=== PATIENT | male | born 1970 | race Caucasian/White ===

== ENCOUNTER 2023-02-20 13:37 | Emergency (ER) | payer MEDICAID, OTHER | END 2023-02-20 15:03 | disposition home or self-care (01) | LOC: JP.ED 13:37 | DX: S62.175A Nondisplaced fracture of trapezium [larger multangular], left wrist, initial encounter for closed fracture (principal); S16.1XXA Strain of muscle, fascia and tendon at neck level, initial encounter; S00.83XA Contusion of other part of head, initial encounter; W22.09XA Striking against other stationary object, initial encounter | CPT/HCPCS: 73130-26-LT; 73130-LT; 99284 ==

== ENCOUNTER 2023-06-07 08:08 | Day surgery (SDC) | payer OTHER ==
[~2023-06-07 08:08] MED LIST: Bupivacaine 0.5% 30 ML SDV ONE
[2023-06-07] MEDS ORDERED: Lactated Ringers 1,000 ML IV SCH (08:30)
[2023-06-07 08:33] LABS: HEMATOCRIT 46.2 % (38.4-49.7); HEMOGLOBIN 16.5 g/dL (12.9-16.9); MEAN CORPUSCULAR HEMOGLOBIN 33.9 pg (31.6-35.5); MEAN CORPUSCULAR HGB CONC 35.7 g/dL (31.6-35.5); MEAN CORPUSCULAR VOLUME 94.9 fL (81.4-99.0); RED BLOOD CELL COUNT 4.87 M/uL (4.14-5.76); WHITE BLOOD CELL COUNT,WBC 7.2 K/uL (3.2-11.0)
[2023-06-07 08:53] LABS: A/G RATIO 1.1 (1.2-2.2); ALANINE AMINOTRANSFERASE,ALT 39 U/L (12-78); ALBUMIN 3.9 g/dL (3.4-5.0); ALKALINE PHOSPHATASE 80 U/L (46-116); ANION GAP 10.3 mmol/L (5.0-14.0); ASPARTATE AMNIOTRANSFERASE,AST 24 U/L (15-37); BILIRUBIN TOTAL 0.8 mg/dL (0.2-1.0); BLOOD UREA NITROGEN,BUN 17 mg/dL (7-18); CALCIUM 8.6 mg/dL (8.5-10.1); CARBON DIOXIDE,CO2 28 mmol/L (21-32); CHLORIDE,CL 102 mmol/L (100-108); CREATININE 1.2 mg/dL (0.8-1.3); EST CRCL DRUG DOSING (CG) 74.35 mL/min; ESTIMATED GFR 73 mL/min (>60); GLUCOSE RANDOM 98 mg/dL (74-106); POTASSIUM,K 4.3 mmol/L (3.6-5.2); PROTEIN TOTAL,TP 7.5 g/dL (6.4-8.2); SODIUM,NA 140 mmol/L (140-148)
[2023-06-07] MEDS ORDERED: Midazolam 1 MG/ML 2 ML SDV ONE (08:56)
[2023-06-07] MEDS ORDERED: Propofol 200 MG/20 ML SDV ONE ×3 (08:56→10:27)
[2023-06-07] MEDS ORDERED: fentaNYL 100 MCG/2 ML SDV ONE (08:56)
[2023-06-07] MEDS ORDERED: ceFAZolin 2 GM in Premix Bag 1 BAG IV ONE (09:00)
[2023-06-07] MEDS ORDERED: Lidocaine 0.5% 50 ML SDV ONE (09:20)
[2023-06-07] MEDS ORDERED: Morphine 2 MG/ML SYRINGE IVPUSH ONE (11:00)
[2023-06-07] MEDS ORDERED: Acetaminophen/HYDROcodone 325-5 MG Tab PO PRN (11:42)
== END 2023-06-07 13:00 | disposition home or self-care (01) ==
LOC: JP.SDS 08:08
PROVIDERS: ATTEND Specialist
DX: M18.12 Unilateral primary osteoarthritis of first carpometacarpal joint, left hand (principal); I10 Essential (primary) hypertension; F43.10 Post-traumatic stress disorder, unspecified; F32.A Depression, unspecified
CPT/HCPCS: 25447; 36415; 80053; 85027; A9270; C1768; J0690; J2250; J2270; J2704; J3010; J3490; J7120

== ENCOUNTER 2023-08-16 08:00 | Day surgery (SDC) | payer OTHER ==
[2023-08-16] MEDS ORDERED: ceFAZolin 2 GM in Sodium Chloride 0.9% 50 ML IV ONE (08:30)
[2023-08-16] MEDS ORDERED: Lactated Ringers 1,000 ML IV SCH (08:30)
[2023-08-16] MEDS ORDERED: Nozin Nasal Sanitizer NASBOTH ONE (08:30)
[2023-08-16] MEDS ORDERED: ceFAZolin 2 GM in Premix Bag 1 BAG IV ONE ×4 (08:30)
[2023-08-16] MEDS ORDERED: fentaNYL 100 MCG/2 ML SDV ONE ×2 (08:32→10:13)
[2023-08-16] MEDS ORDERED: Propofol 200 MG/20 ML SDV ONE ×5 (08:32→11:27)
[2023-08-16] MEDS ORDERED: Lidocaine 0.5% 50 ML SDV ONE (08:32)
[2023-08-16] MEDS ORDERED: Midazolam 1 MG/ML 2 ML SDV ONE ×2 (08:32→10:12)
[2023-08-16 08:36] LABS: HEMATOCRIT 41.8 % (38.4-49.7); MEAN CORPUSCULAR HEMOGLOBIN 33.1 pg (31.6-35.5); MEAN CORPUSCULAR HGB CONC 35.9 g/dL (31.6-35.5); MEAN CORPUSCULAR VOLUME 92.3 fL (81.4-99.0); RED BLOOD CELL COUNT 4.53 M/uL (4.14-5.76); WHITE BLOOD CELL COUNT,WBC 4.6 K/uL (3.2-11.0)
[2023-08-16 08:52] LABS: BLOOD UREA NITROGEN,BUN 18 mg/dL (7-18); CALCIUM 8.3 mg/dL (8.5-10.1); CARBON DIOXIDE,CO2 25 mmol/L (21-32); CHLORIDE,CL 105 mmol/L (100-108); CREATININE 1.2 mg/dL (0.8-1.3); ESTIMATED GFR 73 mL/min (>60); GLUCOSE RANDOM 100 mg/dL (74-106); POTASSIUM,K 4.1 mmol/L (3.6-5.2); SODIUM,NA 139 mmol/L (140-148)
[2023-08-16 08:53] LABS: ANION GAP 13.1 mmol/L (5.0-14.0)
[2023-08-16] MEDS ORDERED: Morphine 2 MG/ML SYRINGE IVPUSH ONE (12:30)
[2023-08-16] MEDS ORDERED: Acetaminophen/HYDROcodone 325-5 MG Tab PO PRN (12:57)
== END 2023-08-16 13:55 | disposition home or self-care (01) ==
LOC: JP.SDS 08:00
PROVIDERS: ATTEND Specialist
DX: M18.12 Unilateral primary osteoarthritis of first carpometacarpal joint, left hand (principal); I10 Essential (primary) hypertension
CPT/HCPCS: 25447; 26356; 36415; 80048; 85027; A9270; J0690; J2250; J2270; J2704; J3010; J3490; J7120

== ENCOUNTER 2023-09-17 13:10 | Emergency (ER) | payer OTHER ==
[2023-09-17] MEDS ORDERED: Sodium Chloride 0.9% 10 ML Syringe FLUSH PRN (13:23)
[2023-09-17] MEDS ORDERED: Ondansetron 4 MG/2 ML SDV IVPUSH ONE (13:27)
[2023-09-17] MEDS ORDERED: Ketorolac 30 MG/ML SDV IVPUSH ONE (13:27)
[2023-09-17] MEDS ORDERED: Sodium Chloride 0.9% 1,000 ML IV ONE (13:28)
[2023-09-17] MEDS ORDERED: Naloxone 0.4 MG/ML SDV IVPUSH PRN (13:28)
[2023-09-17] MEDS ORDERED: HYDROmorphone 0.5 MG/0.5 ML Syringe IVPUSH PRN (13:28)
[2023-09-17] MEDS ORDERED: HYDROmorphone 0.5 MG/0.5 ML Syringe IVPUSH ONE (13:57)
[2023-09-17 14:07] LABS: BASOPHILS ABSOLUTE AUTO 0.08 K/uL (0.00-0.10); BASOPHILS PERCENT AUTO 0.9 % (0.1-1.3); EOSINOPHILS ABSOLUTE AUTO 0.17 K/uL (0.00-0.40); HEMATOCRIT 44.9 % (38.4-49.7); HEMOGLOBIN 16.5 g/dL (12.9-16.9); IMMATURE GRAN ABSOLUTE AUTO 0.05 K/uL (0.00-0.23); IMMATURE GRAN PERCENT AUTO 0.6 % (0.0-0.7); LYMPHOCYTES ABSOLUTE AUTO 2.72 K/uL (0.8-3.3); LYMPHOCYTES PERCENT AUTO 31.4 % (11.4-47.7); MEAN CORPUSCULAR HEMOGLOBIN 34.2 pg (31.6-35.5); MEAN CORPUSCULAR HGB CONC 36.7 g/dL (31.6-35.5); MONOCYTES ABSOLUTE AUTO 0.79 K/uL (0.20-0.90); MONOCYTES PERCENT AUTO 9.1 % (3.3-12.6); NEUTROPHILS ABSOLUTE AUTO 4.84 K/uL (1.0-7.6); PLATELET COUNT,PLT 247 K/uL (130-375); RED BLOOD CELL COUNT 4.83 M/uL (4.14-5.76); WHITE BLOOD CELL COUNT,WBC 8.7 K/uL (3.2-11.0)
[2023-09-17] MEDS ORDERED: droPERidol 5 MG/2 ML SDV IVPUSH ONE (14:08)
[2023-09-17 14:17] LABS: A/G RATIO 1.1 (1.2-2.2); ALANINE AMINOTRANSFERASE,ALT 39 U/L (12-78); ALBUMIN 3.9 g/dL (3.4-5.0); ALKALINE PHOSPHATASE 80 U/L (46-116); ASPARTATE AMNIOTRANSFERASE,AST 26 U/L (15-37); BILIRUBIN TOTAL 0.5 mg/dL (0.2-1.0); BLOOD UREA NITROGEN,BUN 19 mg/dL (7-18); CALCIUM 8.3 mg/dL (8.5-10.1); CARBON DIOXIDE,CO2 25 mmol/L (21-32); CHLORIDE,CL 101 mmol/L (100-108); CREATININE 1.5 mg/dL (0.8-1.3); EST CRCL DRUG DOSING (CG) 58.81 mL/min; ESTIMATED GFR 55 mL/min (>60); GLUCOSE RANDOM 105 mg/dL (74-106); POTASSIUM,K 3.7 mmol/L (3.6-5.2); PROTEIN TOTAL,TP 7.5 g/dL (6.4-8.2); SODIUM,NA 138 mmol/L (140-148)
[2023-09-17 14:19] LABS: ANION GAP 15.7 mmol/L (5.0-14.0)
[2023-09-17] MEDS ORDERED: Tamsulosin 0.4 MG Cap.ER PO ONE (15:13)
[2023-09-17] MEDS ORDERED: Acetaminophen/HYDROcodone 325-10 MG Tab PO ONE (15:26)
[2023-09-17] MEDS ORDERED: Sodium Chloride 0.9% 500 ML IV ONE (15:30)
== END 2023-09-17 16:03 | disposition home or self-care (01) ==
LOC: JP.ED 13:10
DX: N13.2 Hydronephrosis with renal and ureteral calculous obstruction (principal); K76.0 Fatty (change of) liver, not elsewhere classified; I10 Essential (primary) hypertension; Z86.16 Personal history of COVID-19; Z79.899 Other long term (current) drug therapy
CPT/HCPCS: 36415; 74176; 74176-26; 80053; 83605; 85025; 86140; 96361; 96374; 96375; 99284; 99284-25; A9270-GY; J1170; J1790; J1885; J2405; J7030; J7040

== ENCOUNTER 2024-04-28 08:44 | Emergency (ER) | payer OTHER ==
[2024-04-28] MEDS ORDERED: Sodium Chloride 0.9% 10 ML Syringe FLUSH PRN (09:28)
[2024-04-28 09:34] LABS: BASOPHILS ABSOLUTE AUTO 0.04 K/uL (0.00-0.10); BASOPHILS PERCENT AUTO 0.3 % (0.1-1.3); EOSINOPHILS ABSOLUTE AUTO 0.04 K/uL (0.00-0.40); EOSINOPHILS PERCENT AUTO 0.3 % (0.0-5.4); HEMATOCRIT 41.8 % (38.4-49.7); HEMOGLOBIN 15.6 g/dL (12.9-16.9); IMMATURE GRAN ABSOLUTE AUTO 0.08 K/uL (0.00-0.23); IMMATURE GRAN PERCENT AUTO 0.6 % (0.0-0.7); LYMPHOCYTES ABSOLUTE AUTO 1.54 K/uL (0.8-3.3); LYMPHOCYTES PERCENT AUTO 10.9 % (11.4-47.7); MEAN CORPUSCULAR HEMOGLOBIN 33.9 pg (31.6-35.5); MEAN CORPUSCULAR HGB CONC 37.3 g/dL (31.6-35.5); MEAN CORPUSCULAR VOLUME 90.9 fL (81.4-99.0); MONOCYTES ABSOLUTE AUTO 1.05 K/uL (0.20-0.90); MONOCYTES PERCENT AUTO 7.5 % (3.3-12.6); NEUTROPHILS ABSOLUTE AUTO 11.32 K/uL (1.0-7.6); NEUTROPHILS PERCENT AUTO 80.4 % (40.0-78.1); PLATELET COUNT,PLT 220 K/uL (130-375); WHITE BLOOD CELL COUNT,WBC 14.1 K/uL (3.2-11.0)
[2024-04-28] MEDS: fentaNYL 100 MCG/2 ML SDV IVPUSH ONE ×2 (09:39→11:04)
[2024-04-28] MEDS: Ondansetron 4 MG/2 ML SDV IVPUSH ONE (09:39)
[2024-04-28 09:46] LABS: A/G RATIO 0.8 (1.2-2.2); ALANINE AMINOTRANSFERASE,ALT 35 U/L (12-78); ALBUMIN 3.7 g/dL (3.4-5.0); ALKALINE PHOSPHATASE 88 U/L (46-116); ASPARTATE AMNIOTRANSFERASE,AST 21 U/L (15-37); BILIRUBIN TOTAL 1.1 mg/dL (0.2-1.0); BLOOD UREA NITROGEN,BUN 16 mg/dL (7-18); CALCIUM 8.7 mg/dL (8.5-10.1); CARBON DIOXIDE,CO2 24 mmol/L (21-32); CHLORIDE,CL 98 mmol/L (100-108); CREATININE 1.3 mg/dL (0.8-1.3); EST CRCL DRUG DOSING (CG) 67.85 mL/min; ESTIMATED GFR 66 mL/min (>60); GLUCOSE RANDOM 117 mg/dL (74-106); POTASSIUM,K 3.8 mmol/L (3.6-5.2); PROTEIN TOTAL,TP 8.1 g/dL (6.4-8.2); SODIUM,NA 135 mmol/L (140-148)
[2024-04-28] MEDS: Sodium Chloride 0.9% 10 ML Syringe FLUSH PRN (09:47)
[2024-04-28] MEDS: Iopamidol 612 MG/ML 100 ML Bottle IV PRN (09:47)
[2024-04-28] MEDS: Sodium Chloride 0.9% 80 ML IV ONE (09:47)
[2024-04-28] MEDS: Sodium Chloride 0.9% 1,000 ML IV STA (09:48)
[2024-04-28 09:53] LABS: ANION GAP 16.8 mmol/L (5.0-14.0); TROPONIN I HIGH SENSITIVITY < 4.0 pg/mL (<=60.3)
== END 2024-04-28 11:43 | disposition home or self-care (01) ==
LOC: JP.ED 08:44
DX: K85.90 Acute pancreatitis without necrosis or infection, unspecified (principal); I10 Essential (primary) hypertension; Z86.16 Personal history of COVID-19; Z79.899 Other long term (current) drug therapy
CPT/HCPCS: 36415; 74177; 80053; 83605; 83690; 84484; 85025; 96361; 96374; 96375; 96376; 99284; J2405; J3010; J3490; J7030; Q9967

== ENCOUNTER 2024-04-28 18:58 | Inpatient (IN) | payer OTHER ==
[2024-04-28] MEDS ORDERED: Ondansetron 4 MG/2 ML SDV IV PRN (19:30)
[2024-04-28] MEDS ORDERED: Magnesium Hydroxide 400 MG/5 ML Susp 30 ML Cup PO PRN (19:30)
[2024-04-28] MEDS ORDERED: Sennosides/Docusate Sodium 50-8.6 MG Tab PO PRN (19:30)
[2024-04-28] MEDS ORDERED: Ondansetron 4 MG Tab.DIS PO PRN (19:30)
[2024-04-28] MEDS ORDERED: Sodium Chloride 0.9% 10 ML Syringe FLUSH PRN (19:36)
[2024-04-28] MEDS: Dextrose 5%-Lact Ringers w/KCl 1,000 ML IV SCH (20:16)
[2024-04-28] MEDS: Acetaminophen 325 MG Tab PO PRN (20:18)
[2024-04-28 20:28] LABS: C-REACTIVE PROTEIN 13.76 mg/dL (<0.50)
[2024-04-28] MEDS: HYDROmorphone 0.5 MG/0.5 ML Syringe IVPUSH PRN (20:35)
[2024-04-28] MEDS: Pantoprazole 40 MG Vial IV SCH (20:35)
[2024-04-29] MEDS: Ketorolac 30 MG/ML SDV IVPUSH PRN (00:14)
[2024-04-29 04:47] LABS: HEMATOCRIT 37.7 % (38.4-49.7); HEMOGLOBIN 13.7 g/dL (12.9-16.9); MEAN CORPUSCULAR HEMOGLOBIN 33.7 pg (31.6-35.5); MEAN CORPUSCULAR HGB CONC 36.3 g/dL (31.6-35.5); MEAN CORPUSCULAR VOLUME 92.9 fL (81.4-99.0); RED BLOOD CELL COUNT 4.06 M/uL (4.14-5.76)
[2024-04-29 05:17] LABS: A/G RATIO 0.8 (1.2-2.2); ALANINE AMINOTRANSFERASE,ALT 27 U/L (12-78); ALKALINE PHOSPHATASE 69 U/L (46-116); ASPARTATE AMNIOTRANSFERASE,AST 20 U/L (15-37); BILIRUBIN TOTAL 0.8 mg/dL (0.2-1.0); BLOOD UREA NITROGEN,BUN 18 mg/dL (7-18); CALCIUM 8.4 mg/dL (8.5-10.1); CARBON DIOXIDE,CO2 31 mmol/L (21-32); CHLORIDE,CL 101 mmol/L (100-108); CREATININE 1.3 mg/dL (0.8-1.3); EST CRCL DRUG DOSING (CG) 67.85 mL/min; ESTIMATED GFR 66 mL/min (>60); GLUCOSE RANDOM 110 mg/dL (74-106); POTASSIUM,K 4.3 mmol/L (3.6-5.2); PROTEIN TOTAL,TP 6.9 g/dL (6.4-8.2); SODIUM,NA 137 mmol/L (140-148)
[2024-04-29 05:19] LABS: ANION GAP 9.3 mmol/L (5.0-14.0)
[2024-04-29] MEDS: FLUoxetine 20 MG Cap PO SCH (08:05)
[2024-04-29] MEDS: amLODIPine 5 MG Tab PO SCH (08:05)
[2024-04-29] MEDS: Losartan 50 MG Tab PO SCH (08:05)
== END 2024-04-29 13:32 | disposition home or self-care (01) | DRG 440 ==
LOC: JP.MS 18:58
PROVIDERS: ADMIT Internal Medicine; ATTEND Internal Medicine
DX: K85.00 Idiopathic acute pancreatitis without necrosis or infection (principal); D72.829 Elevated white blood cell count, unspecified; I10 Essential (primary) hypertension; M19.90 Unspecified osteoarthritis, unspecified site; F41.9 Anxiety disorder, unspecified; F32.A Depression, unspecified; F43.10 Post-traumatic stress disorder, unspecified; Z79.899 Other long term (current) drug therapy; Z87.442 Personal history of urinary calculi; Z86.16 Personal history of COVID-19; Z98.890 Other specified postprocedural states
CPT/HCPCS: 36415; 80053; 83690; 83735; 84145; 84478; 85027; 86140; 87040; 99222; 99238; A9270-GY; J1170; J1885; J2470; J3480